=== PATIENT | female | born 1955 ===

== ENCOUNTER 2018-12-14 10:34 | Outpatient (CLI) | payer OTHER | END 2018-12-14 10:40 | disposition home or self-care (01) | LOC: RAD 10:34 | DX: I11.9 Hypertensive heart disease without heart failure (principal); R06.02 Shortness of breath ==

== ENCOUNTER → 2018-12-20 | Outpatient (CLI) | payer OTHER | END | disposition home or self-care (01) | LOC: NUCLEAR 12-18 11:00 | DX: I11.9 Hypertensive heart disease without heart failure (principal) ==